=== PATIENT | male | born 1940 | race Two or more races ===

== ENCOUNTER 2024-11-30 12:56 | Inpatient (IN) | payer MEDICARE, OTHER ==
[~2024-11-30] VITALS: Ht 162.6 cm; Wt 61.0 kg
[2024-11-30 13:33] VITALS: O2SAT 98
[2024-11-30 14:00] LABS: PLATELET COUNT (AUTO) 171 K/uL (150-450); RED BLOOD CELL COUNT(AUTO) 4.27 MIL/uL (4.5-6.0); RED CELL DISTRIBUTION WIDTH 14.8 % (11.5-15.0); WHITE BLOOD COUNT (AUTO) 5.4 K/uL (4.3-11.0)
[2024-11-30 14:10] LABS: CALCIUM, SERUM 8.8 mg/dL (8.5-10.1); CREATININE 1.2 mg/dL (0.6-1.3); SODIUM SERUM 137 mmol/L (136-145); UREA NITROGEN, BLOOD 14 mg/dL (7-18)
[2024-11-30 14:16] LABS: INR 1.01 (0.91-1.10)
[2024-11-30] MEDS ORDERED: QUVIVIQ PO (14:19)
[2024-11-30] MEDS ORDERED: NEBI5TAB8 PO (14:19)
[2024-11-30] MEDS ORDERED: SITA1TAB2 PO (14:19)
[2024-11-30] MEDS: MECLIZINE HCL 25 MG TABLET PO ONE (14:30)
[2024-11-30 14:37] LABS: APPEARANCE,URINE CLEAR (CLEAR); BLOOD, URINE Negative Ery/uL (NEGATIVE); LEUKOCYTE ESTERASE ,URINE Negative (NEGATIVE); UGLUCOSE Negative (NEGATIVE)
[2024-11-30 14:39] LABS: NITRITE, URINE NEGATIVE (NEGATIVE)
[2024-11-30 14:42] LABS: ADD URINE CULTURE NO; SQUAMOUS EPITHELIAL CELL,UR None Seen /HPF (None Seen)
[2024-11-30] MEDS: ASPIRIN 325 MG TABLET PO ONE (15:00)
[2024-11-30] MEDS ORDERED: MECLIZINE HCL 25 MG TABLET ONE (16:52)
[2024-11-30] MEDS ORDERED: ASPIRIN 325 MG TABLET ONE (16:53)
[2024-11-30] MEDS ORDERED: ONDANSETRON HCL/PF 4 MG/2 ML VIAL IVP PRN (17:00)
[2024-11-30] MEDS ORDERED: MORPHINE SULFATE INJ 2 MG/ML DISP.SYRIN IV PRN (17:00)
[2024-11-30] MEDS ORDERED: DEXTROSE 50%-WATER 50 ML DISP.SYRIN IV PRN (17:00)
[2024-11-30] MEDS ORDERED: ACETAMINOPHEN 325 MG TABLET PO PRN (17:00)
[2024-11-30] MEDS ORDERED: IOHEXOL-350 100 ML VIAL IV ONE (17:15)
[2024-11-30] MEDS ORDERED: IV NS 0.9% 250 ML IV ONE (17:15)
[2024-11-30 20:00] VITALS: BP 125/67; TEMP 97.7; O2SAT 95
[2024-11-30 20:48] LABS: LDL 104 mg/dL (0-99)
[2024-11-30] MEDS: HEPARIN SODIUM, PORCINE 5000 UNITS/1 ML VIAL SQ SCH (21:10)
[2024-11-30] MEDS: BLOOD SUGAR DIAGNOSTIC 1 EACH STRIP IN SCH (21:26)
[2024-11-30] MEDS: INSULIN REGULAR, HUMAN 100 UNIT/ML 3 ML VIAL SQ PRN (21:35)
[2024-12-01] VITALS: BP 104/69; TEMP 98.1; O2SAT 94
[2024-12-01 04:00] VITALS: BP 110/63; TEMP 98.4; O2SAT 96
[2024-12-01 07:31] LABS: PLATELET COUNT (AUTO) 171 K/uL (150-450); RED BLOOD CELL COUNT(AUTO) 4.26 MIL/uL (4.5-6.0); RED CELL DISTRIBUTION WIDTH 14.9 % (11.5-15.0); WHITE BLOOD COUNT (AUTO) 5.0 K/uL (4.3-11.0)
[2024-12-01 08:00] VITALS: BP 100/59; TEMP 97.9; O2SAT 95
[2024-12-01 08:17] LABS: ASPARTATE AMINOTRANSFERASE 15.0 U/L (15-37); CALCIUM, SERUM 8.9 mg/dL (8.5-10.1); CREATININE 1.2 mg/dL (0.6-1.3); PHOSPHORUS 3.2 mg/dL (2.5-4.9); SODIUM SERUM 142.0 mmol/L (136-145); TOTAL PROTEIN, SERUM 6.6 g/dL (6.4-8.2); UREA NITROGEN, BLOOD 12.0 mg/dL (7-18)
== END 2024-12-01 17:00 | disposition home health service (06) | DRG 72 ==
LOC: ER 13:00 → TELE 17:02
PROVIDERS: ADMIT Internal Medicine; ATTEND Internal Medicine
DX: I67.83 Posterior reversible encephalopathy syndrome (principal); D64.9 Anemia, unspecified; E11.9 Type 2 diabetes mellitus without complications; I10 Essential (primary) hypertension; E78.5 Hyperlipidemia, unspecified; Z79.84 Long term (current) use of oral hypoglycemic drugs; Z85.46 Personal history of malignant neoplasm of prostate; Z79.899 Other long term (current) drug therapy
CPT/HCPCS: 36415; 70450-TC; 70496-TC; 70498-TC; 70551-TC; 71045-TC; 80048-TC; 80053-TC; 80061-TC; 81001; 82962-TC; 83735-TC; 84100-TC; 84484-TC; 85025-TC; 85730-TC; 92507-TC; 92521; 93307-TC; 97116-TC; 97530-TC; 97535-TC; G0378; J1644; J1815; J7050; J8597; Q9967